=== PATIENT | male | born 1995 | race Caucasian/White ===

== ENCOUNTER 2017-05-05 22:52 | Emergency (ER) | payer OTHER ==
[~2017-05-05] VITALS: Ht 170.2 cm; Wt 67.5 kg
[2017-05-05 23:18] VITALS: Ht 170.2 cm; Wt 67.5 kg
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
[2017-05-06] MEDS ORDERED: ACETAMINOPHEN 500 MG TAB PO STA (01:11)
--- NOTE | 2017-05-06 02:21 | RADRPT ---
PROCEDURE: CT Brain without contrast. CLINICAL INDICATION: Headache. TECHNIQUE: Serial axial computed tomographic images of the brain was performed on a CT scanner fro m the skull base through the vertex without contrast. Sagittal and coronal reconstruction images wer e produced. Exam CTDlvol = 45 mGy and DLP = 720 mGy-cm. One of the following 3 dose reduction tech niques were used: Automated exposure control; adjustment of the mA and/or kV according to patient si ze; or use of iterative reconstruction technique. COMPARISON: None available FINDINGS: The ventricles and sulci are normal in size and configuration. There is no midline shift. There ar e no focal parenchymal abnormalities. There is no acute stroke. No acute intracranial hemorrhage o r abnormal extra-axial fluid collection. No fracture identified. Visualized paranasal sinuses are clear. IMPRESSION: 1. No acute intracranial abnormality. RPTAT: [facility] .Lyndon Zelaya MD, Date Time Electronically viewed and signed by .Lyndon Zelaya MD, on 05/06/2017 02:21 .K/
--- NOTE | 2017-05-06 02:29 | RADRPT ---
PROCEDURE: Chest. CLINICAL INDICATION: Chest pain. TECHNIQUE: Single frontal view of the chest was obtained. COMPARISON: None. FINDINGS: The cardiac silhouette is within normal limits. The aortic arch is unremarkable. There is no focal consolidation, vascular congestion or pleural effusion. There is no pneumothorax. IMPRESSION: No evidence for active cardiopulmonary disease. .Danyel Zamora MD, MD Date Time Electronically viewed and signed by .Danyel Zamora MD, on 05/06/2017 02:28 .T/
--- NOTE | 2017-05-06 02:29 | RADRPT ---
PROCEDURE: XR thoracic Spine. CLINICAL INDICATION: upper back pain TECHNIQUE: AP and lateral views of the thoracic spine were obtained. COMPARISON: No prior studies are available for comparison. FINDINGS: The study is significantly limited by portable technique. On the lateral view, the majority of the thoracic spine is extremely poorly seen. A portion of the lumbar spine is well seen. On the fronta l view, thoracic spine is unremarkable. No lytic or blastic lesion is seen. IMPRESSION: Study very limited by portable technique. The thoracic spine is extremely poorly seen on the latera l view. Non portable PA and lateral views are recommended. RPTAT: [facility] Physician Itzel Date Time Electronically viewed and signed by Sydney Tran Physician on 05/06/2017 02:29 LE/
[2017-05-06] MEDS ORDERED: CYCL-319 PO (03:00)
[2017-05-06] MEDS ORDERED: ACET500C5 PO (03:00)
[2017-05-06] MEDS ORDERED: HYDR-906 PO (03:00)
[2017-05-06 03:20] VITALS: BP 136/74; PULSE 68; RESP 17; TEMP 98.3
== END 2017-05-06 03:21 | disposition home or self-care (01) ==
LOC: FTE 22:52
DX: S06.0X0A Concussion without loss of consciousness, initial encounter (principal); S16.1XXA Strain of muscle, fascia and tendon at neck level, initial encounter; S39.012A Strain of muscle, fascia and tendon of lower back, initial encounter; R07.9 Chest pain, unspecified; V89.2XXA Person injured in unspecified motor-vehicle accident, traffic, initial encounter
CPT/HCPCS: 70450; 71010; 72072; Z7502